=== PATIENT | male | born 1970 | race Caucasian/White ===

== ENCOUNTER 2018-12-12 09:47 | Emergency (ER) | payer MEDICAID ==
[~2018-12-12] VITALS: Ht 182.9 cm; Wt 72.7 kg
[2018-12-12 09:53] VITALS: Ht 182.9 cm; Wt 72.7 kg
[2018-12-12 10:26] LABS: BASOPHILS 0.4 % (0-2); EOSINOPHILS 2.3 % (0-7); HEMATOCRIT 39.3 % (42.0-54.0); HEMOGLOBIN 13.5 g/dL (13.5-17.5); IMMATURE GRANULOCYTES 0.2 % (0-5); LYMPHOCYTES 38.9 % (15-50); MCH 29.3 pg (26.0-34.0); MCHC 34.4 g/dL (31.0-37.0); MCV 85.2 fL (80.0-100.0); MEAN PLATELET VOLUME 11.7 fL (7.4-10.4); MONOCYTES 10.1 % (2-11); NEUTROPHILS 48.1 % (40-80); PLATELET COUNT 111 10x3/uL (130-400); RBC 4.61 10x6/uL (4.20-6.10); RDW 14.4 % (11.5-14.5); WBC 5.2 10x3/uL (4.8-10.8)
[2018-12-12 10:33] LABS: CALC OSMOLALITY 276 mosm/kg (275-300); CALCIUM 8.8 mg/dL (8.5-10.1); CARBON DIOXIDE 32.9 mmol/L (21.0-32.0); CHLORIDE - SERUM 100 mmol/L (98-107); CREATININE - SERUM 0.9 mg/dL (0.6-1.3); GLUCOSE 86 mg/dL (74-106); SODIUM 138 mmol/L (136-145); UREA NITROGEN 19 mg/dL (7-18); eGFR NON AFRICAN AMERICAN > 90 mL/min (90-120)
[2018-12-12 10:47] LABS: ALBUMIN 3.6 g/dL (3.4-5.0); ALKALINE PHOSPHATASE 140 U/L (46-116); ALT (SGPT) 270 U/L (10-68); BILIRUBIN - TOTAL 0.57 mg/dL (0.2-1.3); PROTEIN - SERUM 8.5 g/dL (6.4-8.2); THYROID STIMULATING HORMONE 1.91 uIU/mL (0.36-3.74)
[2018-12-12 11:03] LABS: APPEARANCE HAZY (CLEAR); BILIRUBIN NEGATIVE (NEGATIVE); COLOR YELLOW (YELLOW); GLUCOSE NEGATIVE (NEGATIVE); KETONE NEGATIVE (NEGATIVE); NITRITE NEGATIVE (NEGATIVE); PROTEIN NEGATIVE (NEGATIVE); SPECIFIC GRAVITY 1.015 (1.005-1.020); UROBILINOGEN NORMAL (NORMAL)
[2018-12-12 11:05] LABS: BACTERIA NONE SEEN /hpf (NEGATIVE); EPITHELIAL CELLS RARE /hpf (0-5); WHITE CELLS - URINE RARE /hpf (NEGATIVE)
[2018-12-12 15:04] LABS: CREATINE KINASE 610 UL (21-232)
[2018-12-12 15:48] LABS: UDS - AMPHET NEGATIVE QUAL (NEGATIVE); UDS - BARB NEGATIVE QUAL (NEGATIVE); UDS - BENZO NEGATIVE QUAL (NEGATIVE); UDS - COCAINE NEGATIVE QUAL (NEGATIVE); UDS - OPIATE NEGATIVE QUAL (NEGATIVE); UDS - PCP NEGATIVE QUAL (NEGATIVE); UDS - THC POSITIVE QUAL (NEGATIVE)
[2018-12-12] MEDS ORDERED: NAPROSYN500 MG PO (15:58)
[2018-12-12] MEDS ORDERED: ZOFRAN ODT4 MG/UDTAB PO (15:58)
[2018-12-12 16:10] VITALS: BP 127/82
[2018-12-25 15:06] VITALS: Ht 182.9 cm; Wt 72.7 kg
== END 2018-12-12 16:11 | disposition home or self-care (01) ==
LOC: EDBD 09:47 → D.ER 09:47
PROVIDERS: Family Medicine
DX: B34.9 Viral infection, unspecified (principal)

== ENCOUNTER 2018-12-17 15:58 | Emergency (ER) | payer MEDICAID ==
[~2018-12-17] VITALS: Ht 182.9 cm; Wt 75.0 kg
[~2018-12-17 15:58] MED LIST: NAPROSYN500 MG PO; ZOFRAN ODT4 MG/UDTAB PO
[2018-12-17 16:03] VITALS: BP 186/108; Ht 182.9 cm; Wt 75.0 kg
[2018-12-17 16:28] LABS: BASOPHILS 0.2 % (0-2); HEMATOCRIT 40.6 % (42.0-54.0); HEMOGLOBIN 13.8 g/dL (13.5-17.5); IMMATURE GRANULOCYTES 0.2 % (0-5); LYMPHOCYTES 33.5 % (15-50); MCH 29.4 pg (26.0-34.0); MCV 86.4 fL (80.0-100.0); MEAN PLATELET VOLUME 11.5 fL (7.4-10.4); MONOCYTES 11.7 % (2-11); NEUTROPHILS 52.4 % (40-80); PLATELET COUNT 104 10x3/uL (130-400); RDW 14.5 % (11.5-14.5); WBC 5.5 10x3/uL (4.8-10.8)
[2018-12-17 16:36] LABS: APPEARANCE CLEAR (CLEAR); BILIRUBIN NEGATIVE (NEGATIVE); COLOR YELLOW (YELLOW); GLUCOSE NEGATIVE (NEGATIVE); KETONE NEGATIVE (NEGATIVE); NITRITE NEGATIVE (NEGATIVE); PROTEIN TRACE mg/dL (NEGATIVE); UROBILINOGEN NORMAL (NORMAL)
[2018-12-17 16:40] LABS: CALC OSMOLALITY 275 mosm/kg (275-300); CALCIUM 8.8 mg/dL (8.5-10.1); CARBON DIOXIDE 33.4 mmol/L (21.0-32.0); CHLORIDE - SERUM 99 mmol/L (98-107); CREATININE - SERUM 0.9 mg/dL (0.6-1.3); GLUCOSE 102 mg/dL (74-106); POTASSIUM - SERUM 3.4 mmol/L (3.5-5.1); SODIUM 137 mmol/L (136-145); UREA NITROGEN 17 mg/dL (7-18); eGFR NON AFRICAN AMERICAN > 90 mL/min (90-120)
[2018-12-17 16:46] LABS: ALBUMIN 4.1 g/dL (3.4-5.0); ALKALINE PHOSPHATASE 151 U/L (46-116); ALT (SGPT) 266 U/L (10-68); AMYLASE - SERUM 86 U/L (25-115); BILIRUBIN - TOTAL 0.78 mg/dL (0.2-1.3); LIPASE 223 U/L (73-393); PROTEIN - SERUM 8.7 g/dL (6.4-8.2)
== END 2018-12-17 17:56 | disposition left against medical advice (07) ==
LOC: D.ER 15:58
PROVIDERS: Family Medicine
DX: R07.9 Chest pain, unspecified (principal); R06.00 Dyspnea, unspecified

== ENCOUNTER 2018-12-20 22:35 | Inpatient (IN) | payer MEDICAID ==
[~2018-12-20] VITALS: Ht 182.9 cm; Wt 75.0 kg
[2018-12-20 23:17] LABS: BASOPHILS 0.2 % (0-2); EOSINOPHILS 1.6 % (0-7); HEMATOCRIT 34.8 % (42.0-54.0); HEMOGLOBIN 11.9 g/dL (13.5-17.5); IMMATURE GRANULOCYTES 0.2 % (0-5); LYMPHOCYTES 33.9 % (15-50); MCHC 34.2 g/dL (31.0-37.0); MCV 84.7 fL (80.0-100.0); MONOCYTES 10.5 % (2-11); NEUTROPHILS 53.6 % (40-80); PLATELET COUNT 110 10x3/uL (130-400); RBC 4.11 10x6/uL (4.20-6.10); RDW 14.4 % (11.5-14.5); WBC 6.1 10x3/uL (4.8-10.8)
[2018-12-20 23:39] LABS: CALC OSMOLALITY 284 mosm/kg (275-300); CALCIUM 8.8 mg/dL (8.5-10.1); CARBON DIOXIDE 28.2 mmol/L (21.0-32.0); CHLORIDE - SERUM 102 mmol/L (98-107); CREATININE - SERUM 0.9 mg/dL (0.6-1.3); GLUCOSE 93 mg/dL (74-106); POTASSIUM - SERUM 3.2 mmol/L (3.5-5.1); SODIUM 140 mmol/L (136-145); UREA NITROGEN 28 mg/dL (7-18); eGFR NON AFRICAN AMERICAN > 90 mL/min (90-120)
[2018-12-20 23:44] VITALS: BP 170/109
[2018-12-20 23:44] LABS: ALBUMIN 3.7 g/dL (3.4-5.0); ALKALINE PHOSPHATASE 127 U/L (46-116); ALT (SGPT) 239 U/L (10-68); BILIRUBIN - TOTAL 0.82 mg/dL (0.2-1.3); PROTEIN - SERUM 7.8 g/dL (6.4-8.2)
--- NOTE | 2018-12-21 00:13 | NUR ---
PT ARRIVED ON UNIT VIA WHEELCHAIR, ESCORTED BY ER NURSE. ORIENTED TO ROOM AND CALL LIGHT. PROVIDED SANDWICH TRAY AND DRINKS. VANC INFUSING ON ARRIVAL.
[2018-12-21 00:28] VITALS: BP 148/101; BMI 22.4
--- NOTE | 2018-12-21 00:36 | NUR ---
ADMISSION ASSESSMENT COMPLETE.
--- NOTE | 2018-12-21 01:22 | NUR ---
GAVE TORADOL 15 MG IVP FOR C/O PAIN IN LEFT HAND. WILL MONITOR FOR EFFECTIVENESS.
--- NOTE | 2018-12-21 01:22 | NUR ---
WRAPPED IV SO PT CAN GET IN SHOWER. PROVIDED ALL TOLITRIES , TOWELS AND GOWN.
[2018-12-21 04:00] VITALS: BP 125/79
[2018-12-21 07:49] VITALS: BP 131/89
--- NOTE | 2018-12-21 07:55 | NUR ---
PT ALERT X 4. BREATH SOUNDS CLEAR BILAT. IV TO RIGHT FOREARM, PATENT, DRESSING CDI. PT REPORTING PAIN OF 8/10, MEDICATED PER ORDERS, WILL MONITOR. PT TEARFUL. LEFT HAND SWOLLEN. BED LOW, CALL LIGHT IN REACH. NO OTHER NEEDS AT THIS TIME.
[2018-12-21 09:16] VITALS: Ht 182.9 cm; Wt 75.0 kg
[2018-12-21 09:25] LABS: APPEARANCE CLEAR (CLEAR); BILIRUBIN NEGATIVE (NEGATIVE); COLOR YELLOW (YELLOW); GLUCOSE NEGATIVE (NEGATIVE); KETONE NEGATIVE (NEGATIVE); NITRITE NEGATIVE (NEGATIVE); PROTEIN NEGATIVE (NEGATIVE); UROBILINOGEN NORMAL (NORMAL)
[2018-12-21 09:35] LABS: UDS - AMPHET POSITIVE QUAL (NEGATIVE); UDS - BARB NEGATIVE QUAL (NEGATIVE); UDS - BENZO NEGATIVE QUAL (NEGATIVE); UDS - COCAINE NEGATIVE QUAL (NEGATIVE); UDS - OPIATE NEGATIVE QUAL (NEGATIVE); UDS - PCP NEGATIVE QUAL (NEGATIVE); UDS - THC POSITIVE QUAL (NEGATIVE)
[2018-12-21 09:55] LABS: % SATURATION 45 % (15-55); IRON 136 ug/dl (35-150); TOTAL IRON BIND CAPACITY 297 ug/dl (260-445); UNSAT IRON BIND CAPACITY 161 ug/dl (150-375)
[2018-12-21 13:10] VITALS: BP 143/87
[2018-12-21 16:58] VITALS: BP 112/78
--- NOTE | 2018-12-21 19:00 | NUR ---
BEDSIDE REPORT RECEIVED AND CARE OF PT ASSUMED. PT LYING IN SEMI ACEVES'S POSITION WATCHING TV. IV TO RIGHT FA SALINE LOCKED. TELEMETRY IN PLACE AND READING SR AT THIS TIME. WILL MONITOR FOR NEEDS.
--- NOTE | 2018-12-21 20:20 | NUR ---
[facility] MEDICAITIONS GIVEN TO INCLUDE NORCO AND TORADOL FOR PAIN. WILL CONTINUE TO MONITOR FOR NEEDS.
[2018-12-21 21:25] VITALS: BP 133/74
[2018-12-22 00:17] VITALS: BP 130/96
[2018-12-22 04:47] VITALS: BP 148/92
--- NOTE | 2018-12-22 05:18 | NUR ---
PT HOT SOAKING LEFT HAND AT THIS TIME.
[2018-12-22 06:08] LABS: CALC OSMOLALITY 280 mosm/kg (275-300); CALCIUM 8.5 mg/dL (8.5-10.1); CARBON DIOXIDE 29.9 mmol/L (21.0-32.0); CHLORIDE - SERUM 105 mmol/L (98-107); CREATININE - SERUM 0.7 mg/dL (0.6-1.3); GLUCOSE 116 mg/dL (74-106); POTASSIUM - SERUM 3.4 mmol/L (3.5-5.1); SODIUM 140 mmol/L (136-145); eGFR NON AFRICAN AMERICAN > 90 mL/min (90-120)
[2018-12-22 06:10] LABS: UREA NITROGEN 14 mg/dL (7-18)
[2018-12-22 06:17] LABS: BASOPHILS 0.3 % (0-2); EOSINOPHILS 4.2 % (0-7); HEMATOCRIT 34.7 % (42.0-54.0); HEMOGLOBIN 11.8 g/dL (13.5-17.5); IMMATURE GRANULOCYTES 0.3 % (0-5); LYMPHOCYTES 42.2 % (15-50); MCH 29.2 pg (26.0-34.0); MCV 85.9 fL (80.0-100.0); MEAN PLATELET VOLUME 11.5 fL (7.4-10.4); MONOCYTES 9.9 % (2-11); NEUTROPHILS 43.1 % (40-80); RBC 4.04 10x6/uL (4.20-6.10); RDW 14.5 % (11.5-14.5)
--- NOTE | 2018-12-22 06:26 | NUR ---
POTASSIUM LEVEL 3.4 THIS AM REQUIRING COVERAGE WITH 40 MEQ K DUR PER THE ELECTROLYTE PROTOCOL. WILL RE-CHECK LEVEL AT 1030.
[2018-12-22 06:27] LABS: PLATELET COUNT 85 10x3/uL (130-400); WBC 3.1 10x3/uL (4.8-10.8)
[2018-12-22 07:56] VITALS: BP 150/86
[2018-12-22 11:15] LABS: ANISOCYTOSIS OCC; PLATELET ESTIMATE DECREASED; ROULEAUX OCC
[2018-12-22 11:43] VITALS: BP 146/83
[2018-12-22 16:38] VITALS: BP 148/102
--- NOTE | 2018-12-22 18:00 | NUR ---
PATIENT ON PHONE WITH PROVIDER. GOT "PISSED OFF." PHONE IS SHATTERED LAYING BY THE SINK.
--- NOTE | 2018-12-22 18:40 | NUR ---
PATIENT OBSERVED MOVING BED AROUND THE ROOM.
--- NOTE | 2018-12-22 19:12 | NUR ---
LYING IN BED WITH TELEVISION ON. ABLE TO VOICE ALL NEEDS. DENIES ANY PAIN AT THIS TIME, CONVERSATION IS SLIGHTLY DISORGANIZED AT TIMES. REQUESTS ICE CREAM. GRANTED. WILL NOTE ANY CHANGE.
[2018-12-22 22:13] VITALS: BP 157/91
--- NOTE | 2018-12-22 22:36 | NUR ---
VERY UPSET IN ROOM WHEN THIS NURSE ARRIVED TO GIVE PRN MEDICATION, HAD THROWN COKES AND WATER ALL ABOUT ROOM, THIS NURSE CLEANED THEM UP AND OFFERED NEW HYDRATION. PT WAS VERY COLORFUL TOWARDS THIS NURSE WITH HIS LANGUAGE, THIS NURSE OFFERED TO LEAVE IF HE WAS SO UPSET WITH THIS NURSE, HE THEN STATED IT WAS THE DR HE WAS UPSET WITH AND HE WAS SORRY FOR TALKING TO THIS NURSE IN THAT MANNER, HE WANTS MORE PAIN MEDICATION AND IS UPSET THAT HE ISN'T GETTING IT MORE FREQUENTLY. THIS NURSE OFFERED SUPPORT AND HE WAS RECEPTIVE. WILL NOTE ANY FURTHER CHANGE.
[2018-12-23 01:21] VITALS: BP 151/108
--- NOTE | 2018-12-23 02:22 | NUR ---
I have reviewed this patient and I concur with the Shift Assessment completed by the Licensed Practical Nurse today this shift.
--- NOTE | 2018-12-23 04:15 | NUR ---
REQUESTING PAIN MEDICATION AND HOT WATER SOAK TO HAND THIS MORNING, THEN REQUESTED ANY MEDICATION I HAD TO GIVE HIM TO GO AHEAD AND GIVE SO HE COULD REST, THIS NURSE GAVE PAIN MEDICATION PER APR AND MORNING PROTONIX AND ANTIBIOTIC PER APR. HE REQUESTED HYDRATION, GRANTED. WHEN THIS NURSE EXITED ROOM, PT WAS CALM AND LYING SUPINE WITH NO S/S OF ANY ACUTE DISTRESS. WILL NOTE ANY CHANGE.
[2018-12-23 05:34] VITALS: BP 145/88
--- NOTE | 2018-12-23 05:51 | NUR ---
RESTING FAIR AT THIS TIME. SHOWS NO S/S OF ANY ACUTE DISTRESS. DISPLAYS PLEASANT MOOD AND AFFECT AT THIS TIME. WILL NOTE ANY CHANGE.
[2018-12-23 07:08] LABS: BASOPHILS 0.6 % (0-2); EOSINOPHILS 3.7 % (0-7); HEMATOCRIT 36.5 % (42.0-54.0); HEMOGLOBIN 12.3 g/dL (13.5-17.5); IMMATURE GRANULOCYTES 0.3 % (0-5); LYMPHOCYTES 37.6 % (15-50); MCH 29.1 pg (26.0-34.0); MCHC 33.7 g/dL (31.0-37.0); MCV 86.3 fL (80.0-100.0); MEAN PLATELET VOLUME 12.6 fL (7.4-10.4); MONOCYTES 9.9 % (2-11); NEUTROPHILS 47.9 % (40-80); PLATELET COUNT 99 10x3/uL (130-400); RBC 4.23 10x6/uL (4.20-6.10); RDW 14.7 % (11.5-14.5); WBC 3.5 10x3/uL (4.8-10.8)
[2018-12-23 07:14] LABS: CALC OSMOLALITY 279 mosm/kg (275-300); CALCIUM 8.5 mg/dL (8.5-10.1); CHLORIDE - SERUM 104 mmol/L (98-107); CREATININE - SERUM 0.7 mg/dL (0.6-1.3); GLUCOSE 90 mg/dL (74-106); POTASSIUM - SERUM 3.5 mmol/L (3.5-5.1); SODIUM 140 mmol/L (136-145); UREA NITROGEN 16 mg/dL (7-18); eGFR NON AFRICAN AMERICAN > 90 mL/min (90-120)
[2018-12-23 07:52] LABS: PLATELET ESTIMATE DECREASED
[2018-12-23 08:42] VITALS: BP 141/105
--- NOTE | 2018-12-23 08:45 | NUR ---
PATIENT REQUESTED AND RECIEVED COFFEE. HAS BREAKFAST TRAY ON LAP. CL IN REACH. WCTM
--- NOTE | 2018-12-23 12:00 | NUR ---
UNCLAMPED VANC BAG. ASKED PT NOT TO MESS WITH IV TUBING BECAUSE HE NEEDS HIS IV ANTIBIOTICS. RETIMED FOR MIDNIGHT.
[2018-12-23 12:25] VITALS: BP 161/102
[2018-12-23 13:10] LABS: HEPATITIS C ANTIBODY >11.0 S/CO RAT (0.0-0.9)
--- NOTE | 2018-12-23 14:12 | MORECARE ---
CASE MANAGEMENT DISCHARGE SUMMARY PATIENT: MINGO OQUENDO UNIT: [id number] ADM DATE: 12/20/18 AGE: 48 : 68 SEX: M ROOM/BED: D.2204 AUTHOR: KINGSLEY NICHOLAS PHYSICIAN: REFERRING PHYSICIAN: MELQUIADES BAEZA MD DATE OF SERVICE: 12/23/18 Discharge Plan Patient Name: MINGO OQUENDO [facility] [facility] 1970 Planned Disposition: Home Anticipated Discharge Date: Discharge Date: Expected LOS: Initial Reviewer: [email or web address] Initial Review Date: 12/21/2018 Generated: 12/23/18 3:12 pm Patient Name: MINGO OQUENDO Page [id number] at 1412 All edits/amendments must be made on the electronic document DICTATION DATE: 12/23/18 141 LIBRARY ASSISTANT: MICHOACANO 12/23/18 141 RPT#: [id number] DC DATE: STATUS: ADM IN [facility] [address] [place] [address] END OF REPORT
--- NOTE | 2018-12-23 14:23 | MORECARE ---
CASE MANAGEMENT DISCHARGE SUMMARY PATIENT: MINGO OQUENDO UNIT: [id number] ADM DATE: 12/20/18 AGE: 48 : 68 SEX: M ROOM/BED: D.2204 AUTHOR: KINGSLEY NICHOLAS PHYSICIAN: REFERRING PHYSICIAN: MELQUIADES BAEZA MD DATE OF SERVICE: 12/23/18 Discharge Plan Patient Name: MINGO OQUENDO Facility: [facility]:[place] : 1970 Planned Disposition: Home Anticipated Discharge Date: Discharge Date: Expected LOS: Initial Reviewer: [email or web address] Initial Review Date: 12/21/2018 Generated: 12/23/18 3:23 pm Comments DCP- Discharge Planning Updated by [email or web address]: Sera Dong on 12/23/18 1:[address] Patient Name: MINGO OQUENDO Admission Status: ER Accout number: [id number] Admission Date: 12-20-2018 : 1970 Admission Diagnosis: Attending: MELQUIADES BAEZA Current LOS: 3 Anticipated DC Date: Planned Disposition: Home Primary Insurance: MEDICAID [place] Discharge Planning Comments: CM met with patient to complete initial dc planning assessment. CM educated patient on the CM role and verbal consent given by patient to complete assessment. Patient is homeless and has been on and off for the mast 2 years. He is staying at [facility] when he is discharged. Patient stated that he also has a friend that he stays with a couple nights a month if needed. CM discussed availability of home health, rehab services, and medical equipment. He does get food stamps and stated that he can get a job. He has issues with transportation. I [place] get [place] bus [place] the patient [place]. Patient denied known discharge needs at this time. CM will continue to follow and will assist as needed with dc plans/needs. Helmet Hat Brim Cutter: Sera Dong Last DP export: 12/23/18 1:12 Patient Name: MINGO OQUENDO Page [id number] at 1423 All edits/amendments must be made on the electronic document DICTATION DATE: 12/23/18 1426 EXECUTIVE OFFICER SPECIAL WARFARE TEAM: MICHOACANO 12/23/18 1423 RPT#: [id number] DC DATE: STATUS: ADM IN [facility] [address] [place] [address] END OF REPORT
[2018-12-23 16:58] VITALS: BP 162/102
[2018-12-23 21:26] VITALS: BP 161/101
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
[2018-12-24 02:26] VITALS: BP 155/102
[2018-12-24 05:51] VITALS: BP 136/74
[2018-12-24 06:51] LABS: BASOPHILS 0.4 % (0-2); EOSINOPHILS 3.1 % (0-7); HEMATOCRIT 40.1 % (42.0-54.0); HEMOGLOBIN 13.7 g/dL (13.5-17.5); IMMATURE GRANULOCYTES 0.4 % (0-5); LYMPHOCYTES 36.1 % (15-50); MCH 29.5 pg (26.0-34.0); MCHC 34.2 g/dL (31.0-37.0); MCV 86.2 fL (80.0-100.0); MEAN PLATELET VOLUME 12.2 fL (7.4-10.4); MONOCYTES 7.8 % (2-11); NEUTROPHILS 52.2 % (40-80); PLATELET COUNT 118 10x3/uL (130-400); RBC 4.65 10x6/uL (4.20-6.10); RDW 14.7 % (11.5-14.5)
[2018-12-24 07:03] LABS: WBC 5.1 10x3/uL (4.8-10.8)
--- NOTE | 2018-12-24 07:20 | NUR ---
I have reviewed this patient and I concur with the Shift Assessment completed by the Licensed Practical Nurse today this shift.
[2018-12-24 07:29] LABS: CALC OSMOLALITY 279 mosm/kg (275-300); CALCIUM 8.9 mg/dL (8.5-10.1); CARBON DIOXIDE 27.4 mmol/L (21.0-32.0); CHLORIDE - SERUM 102 mmol/L (98-107); CREATININE - SERUM 0.7 mg/dL (0.6-1.3); GLUCOSE 97 mg/dL (74-106); POTASSIUM - SERUM 4.1 mmol/L (3.5-5.1); SODIUM 139 mmol/L (136-145); UREA NITROGEN 19 mg/dL (7-18); eGFR NON AFRICAN AMERICAN > 90 mL/min (90-120)
--- NOTE | 2018-12-24 07:30 | NUR ---
PATIENT WANTS TO TRY AND GET AHOLD OF HIS SISTER PHOENIX AGUILAR OR HER YASMIN. SHE WORKS AT [employer]. OR TO GET IN TOUCH WITH HIS NEPHEWS LUIS ENRIQUE OR SHLOMO GAONA. I RESPONDED WE WOULD SEE IF WE COULD. CL IN REACH. REQUESTING PAIN MEDS. TOLD HIM I WOULD HAVE TO SEE WHEN THEY WERE AVAILABLE. WCTM
[2018-12-24 08:45] VITALS: BP 169/94
--- NOTE | 2018-12-24 11:14 | NUR ---
PATIENT REQUESTED AND RECEIVED PAPER AND PENCIL. DIETER
--- NOTE | 2018-12-24 12:03 | NUR ---
RESPONDED TO CALL LIGHT. HE SAID THAT "HE DIDN'T NEED NOTHING." I ASKED IF HE REMEMBERED WHAT HE NEEDED AND HE SAID "YEA, AND THAT IT DOESN'T MATTER."
[2018-12-24 12:16] VITALS: BP 188/110
[2018-12-24] MEDS ORDERED: NORVASC5 MG PO (12:25)
[2018-12-24] MEDS ORDERED: VITAMIN B-1100 M1 PO (12:26)
[2018-12-24] MEDS ORDERED: LISINOPRIL10 MG PO (12:26)
[2018-12-24] MEDS ORDERED: MULTI-DAY VITAM1 TAB PO (12:26)
[2018-12-24] MEDS ORDERED: FLORAJEN3 CAPS460 MG PO (12:26)
[2018-12-24] MEDS ORDERED: FOLIC ACID1 MG PO (12:26)
[2018-12-24] MEDS ORDERED: CLEOCIN HCL300 MG PO (12:27)
--- NOTE | 2018-12-24 14:15 | NUR ---
BED MOVED OUT. PATIENT ON YOU TUBE ON HOSPITAL COMPUTER. PHONE NOT WORKING. CORD OUT OF WALL AND SNAPPED. WANTS ME TO CALL HIS SISTER AND TELL HER HE'S IN THE HOSPITAL AND WANTS [employer]IP[employer]. CL IN REACH.
--- NOTE | 2018-12-24 14:22 | NUR ---
RECHECKED PATIENTS BP AT THIS TIME IT IS 146/105. WILL GIVE APRESOLINE IV.
[2018-12-24 14:23] VITALS: BP 146/105
--- NOTE | 2018-12-24 15:52 | MORECARE ---
CASE MANAGEMENT DISCHARGE SUMMARY PATIENT: MINGO OQUENDO UNIT: [id number] ADM DATE: 12/20/18 AGE: 48 : 68 SEX: M ROOM/BED: D.2204 AUTHOR: KINGSLEY NICHOLAS PHYSICIAN: REFERRING PHYSICIAN: MELQUIADES BAEZA MD DATE OF SERVICE: 12/24/18 Discharge Plan Patient Name: MINGO OQUENDO Facility: [facility]:[place] : 1970 Planned Disposition: Home Anticipated Discharge Date: Discharge Date: Expected LOS: Initial Reviewer: [email or web address] Initial Review Date: 12/21/2018 Generated: 12/24/18 4:51 pm Comments DCP- Discharge Planning Updated by [email or web address]: Sera Dong on 12/24/18 2:[address] PATIENT DISCHARGING TO A HOMELESS SKILLED NURSING, [facility] WILL PAY FOR TAXI TO GET HIM THERE, I HAVE MADE AN APPOINTMENT WITH DR RAO FOR @ 10:30 AND PROVIDED HIM WITH 2 BUS TICKETS SO HE CAN GET THERE DCP- Discharge Planning Updated by [email or web address]: Sera Dong on 12/23/18 1:[address] Patient Name: MINGO OQUENDO Admission Status: ER Accout number: [id number] Admission Date: 12-20-2018 : 1970 Admission Diagnosis: Attending: MELQUIADES BAEZA Current LOS: 3 Anticipated DC Date: Planned Disposition: Home Primary Insurance: MEDICAID [place] Discharge Planning Comments: CM met with patient to complete initial dc planning assessment. CM educated patient on the CM role and verbal consent given by patient to complete assessment. Patient is homeless and has been on and off for the mast 2 years. He is staying at [facility] when he is discharged. Patient stated that he also has a friend that he stays with a couple nights a month if needed. CM discussed availability of home health, rehab services, and medical equipment. He does get food stamps and stated that he can get a job. He has issues with transportation. I will get a bus ticket for the patient at [place]. Patient denied known discharge needs at this time. CM will continue to follow and will assist as needed with dc plans/needs. Talent Coordinator: Sera Thurman DP export: 12/23/18 1:23 Patient Name: MINGO OQUENDO Page [id number] at 1552 All edits/amendments must be made on the electronic document DICTATION DATE: 12/24/181550 FLATWORK PRESSER: MICHOACANO 12/24/181550 RPT#: [id number] DC DATE: STATUS: ADM IN [facility] [address] [place] [address] END OF REPORT
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
--- NOTE | 2018-12-24 16:35 | NUR ---
PT DECIDES HE WILL TAKE A CAB AFTER ALL TO [address] [place] [address]. WILL CALL CAB. IV THERAPY DC'ED FROM RIGHT FOREARM. DISCHARGE INSTRUCTIONS GIVEN AND PT VERBALIZED UNDERSTANDING. CONCERNED OVER GETTING MEDICATIONS BECAUSE HE HAS NO MONEY.
[2018-12-24 16:44] VITALS: BP 156/96
--- NOTE | 2018-12-26 15:11 | MORECARE ---
CASE MANAGEMENT DISCHARGE SUMMARY PATIENT: MINGO OQUENDO UNIT: [id number] ADM DATE: 12/20/18 AGE: 48 : 68 SEX: M ROOM/BED: D.2204 AUTHOR: KINGSLEY NICHOLAS PHYSICIAN: REFERRING PHYSICIAN: MELQUIADES BAEZA MD DATE OF SERVICE: 12/26/18 Discharge Plan Patient Name: MINGO OQUENDO Facility: [facility]:[place] : 1970 Planned Disposition: Home Anticipated Discharge Date: Discharge Date: 12/24/2018 Expected LOS: 0 Initial Reviewer: [email or web address] Initial Review Date: 12/21/2018 Generated: 12/26/18 4:11 pm Comments DCP- Discharge Planning Updated by [email or web address]: Sera Dong on 12/24/18 2:[address] PATIENT DISCHARGING TO A HOMELESS NURSING HOME, [facility] WILL PAY FOR TAXI TO GET HIM THERE, I HAVE MADE AN APPOINTMENT WITH DR RAO FOR @ 10:30 AND PROVIDED HIM WITH 2 BUS TICKETS SO HE CAN GET THERE DCP- Discharge Planning Updated by [email or web address]: Sera Dong on 12/23/18 1:[address] Patient Name: MINGO OQUENDO Admission Status: ER Accout number: [id number] Admission Date: 12-20-2018 : 1970 Admission Diagnosis: Attending: MELQUIADES BAEZA Current LOS: 3 Anticipated DC Date: Planned Disposition: Home Primary Insurance: MEDICAID [place] Discharge Planning Comments: CM met with patient to complete initial dc planning assessment. CM educated patient on the CM role and verbal consent given by patient to complete assessment. Patient is homeless and has been on and off for the mast 2 years. He is staying at [facility] when he is discharged. Patient stated that he also has a friend that he stays with a couple nights a month if needed. CM discussed availability of home health, rehab services, and medical equipment. He does get food stamps and stated that he can get a job. He has issues with transportation. I [place] get a bus ticket for the patient at [place]. Patient denied known discharge needs at this time. CM will continue to follow and will assist as needed with dc plans/needs. Shovel Oiler: Sera Dong Last DP export: 12/24/18 2:52 Patient Name: MINGO OQUENDO Page [id number] at 1511 All edits/amendments must be made on the electronic document DICTATION DATE: 12/26/181510 ROOM COOLER INSTALLER: MICHOACANO 12/26/181510 RPT#: [id number] DC DATE:12/24/18 STATUS: DIS IN [facility] [address] [place] [address] END OF REPORT
== END 2018-12-24 17:09 | disposition home or self-care (01) | DRG 603 ==
LOC: D.ER 22:35 → D.MS 23:42 → D.ER 12-21 00:01 → D.MS 12-24 17:09
PROVIDERS: Emergency Medicine; Family Medicine; ADMIT Internal Medicine Nephrology; ATTEND Internal Medicine Nephrology
DX: L03.114 Cellulitis of left upper limb (principal); N17.9 Acute kidney failure, unspecified; D64.9 Anemia, unspecified; E87.6 Hypokalemia; I10 Essential (primary) hypertension; B19.20 Unspecified viral hepatitis C without hepatic coma; Z72.89 Other problems related to lifestyle; D69.59 Other secondary thrombocytopenia; F12.929 Cannabis use, unspecified with intoxication, unspecified; R91.1 Solitary pulmonary nodule

== ENCOUNTER 2018-12-25 14:53 | Emergency (ER) | payer MEDICAID ==
[~2018-12-25] VITALS: Ht 182.9 cm; Wt 75.0 kg
[~2018-12-25 14:53] MED LIST changes: +CLEOCIN HCL300 MG PO; +FLORAJEN3 CAPS460 MG PO; +FOLIC ACID1 MG PO; +LISINOPRIL10 MG PO; +MULTI-DAY VITAM1 TAB PO; +NORVASC5 MG PO; +VITAMIN B-1100 M1 PO
[2018-12-25 15:06] VITALS: BP 162/101; Ht 182.9 cm; Wt 75.0 kg
[2018-12-25 17:29] LABS: BASOPHILS 0.3 % (0-2); EOSINOPHILS 1.4 % (0-7); HEMATOCRIT 39.4 % (42.0-54.0); HEMOGLOBIN 13.5 g/dL (13.5-17.5); IMMATURE GRANULOCYTES 0.3 % (0-5); LYMPHOCYTES 21.5 % (15-50); MCH 29.8 pg (26.0-34.0); MCHC 34.3 g/dL (31.0-37.0); MEAN PLATELET VOLUME 12.2 fL (7.4-10.4); NEUTROPHILS 64.5 % (40-80); RBC 4.53 10x6/uL (4.20-6.10); RDW 14.7 % (11.5-14.5)
[2018-12-25 17:32] LABS: PLATELET COUNT 143 10x3/uL (130-400); WBC 7.7 10x3/uL (4.8-10.8)
[2018-12-25 17:38] LABS: CALC OSMOLALITY 272 mosm/kg (275-300); CALCIUM 9.1 mg/dL (8.5-10.1); CARBON DIOXIDE 32.4 mmol/L (21.0-32.0); CHLORIDE - SERUM 101 mmol/L (98-107); CREATININE - SERUM 0.8 mg/dL (0.6-1.3); GLUCOSE 93 mg/dL (74-106); POTASSIUM - SERUM 3.7 mmol/L (3.5-5.1); SODIUM 136 mmol/L (136-145); UREA NITROGEN 16 mg/dL (7-18); eGFR NON AFRICAN AMERICAN > 90 mL/min (90-120)
[2018-12-25 17:45] LABS: ALBUMIN 3.5 g/dL (3.4-5.0); ALKALINE PHOSPHATASE 130 U/L (46-116); ALT (SGPT) 286 U/L (10-68); BILIRUBIN - TOTAL 0.58 mg/dL (0.2-1.3); PROTEIN - SERUM 7.9 g/dL (6.4-8.2)
== END 2018-12-25 17:55 | disposition home or self-care (01) ==
LOC: D.ER 14:53
PROVIDERS: Family Medicine
DX: T81.72XA Complication of vein following a procedure, not elsewhere classified, initial encounter (principal); I80.8 Phlebitis and thrombophlebitis of other sites

== ENCOUNTER 2019-08-04 14:49 | Emergency (ER) | payer MEDICAID ==
[~2019-08-04] VITALS: Ht 182.9 cm; Wt 68.2 kg
[2019-08-04 15:33] VITALS: Ht 182.9 cm; Wt 68.2 kg
[2019-08-04 16:26] LABS: UDS - AMPHET POSITIVE QUAL (NEGATIVE); UDS - BARB NEGATIVE QUAL (NEGATIVE); UDS - BENZO NEGATIVE QUAL (NEGATIVE); UDS - COCAINE NEGATIVE QUAL (NEGATIVE); UDS - OPIATE NEGATIVE QUAL (NEGATIVE); UDS - PCP NEGATIVE QUAL (NEGATIVE); UDS - THC POSITIVE QUAL (NEGATIVE)
[2019-08-04 17:57] VITALS: BP 141/99
== END 2019-08-04 18:08 | disposition home or self-care (01) ==
LOC: D.ER 14:49
PROVIDERS: Family Medicine
DX: S92.401A Displaced unspecified fracture of right great toe, initial encounter for closed fracture (principal); S11.91XA Laceration without foreign body of unspecified part of neck, initial encounter; V89.2XXA Person injured in unspecified motor-vehicle accident, traffic, initial encounter; Y93.9 Activity, unspecified; Y92.9 Unspecified place or not applicable; M54.2 Cervicalgia; I10 Essential (primary) hypertension